=== PATIENT | male | born 1995 | race Hispanic/Latino ===

== ENCOUNTER 2019-09-19 21:06 | Emergency (ER) | payer SELFPAY ==
--- NOTE | 2019-09-19 21:24 | Event Note ---
ED Screening Note Date of service: 09/19/19 Time: 21:23 ED Screening Note: 4-year-old -Dominican male brought in by friend for concern of a seizure. It was reported that patient was smoking weed and drinking alcohol when he fell off the bed and was having full body shaking and had wet on himself. This initial assessment/diagnostic orders/clinical plan/treatment(s) is/are subject to change based on patients health status, clinical progression and re- assessment by fellow clinical providers in the ED. Further treatment and workup at subsequent clinical providers discretion. Patient/guardian urged not to elope from the ED as their condition may be serious if not clinically assessed and managed. Initial orders include: Seizure work-up with CT
[2019-09-19 21:37] LABS: Bilirubin,Urine NEG (Negative); Blood,Urine NEG (Negative); Color,Urine Colorless (Yellow); Protein,Urine <15 mg/dL mg/dL (Negative); Urobilinogen,Urine < 2.0 mg/dL (<2.0)
[2019-09-19 21:46] LABS: Amphetamine Screen,Urine PRESUMPTIVE NEGATIVE; Benzodiazepines Screen,Urine PRESUMPTIVE NEGATIVE; Cannabinoid Screen,Urine PRESUMPTIVE NEGATIVE; Cocaine Screen,Urine PRESUMPTIVE NEGATIVE; Methadone Screen,Urine PRESUMPTIVE NEGATIVE; Opiate Screen,Urine PRESUMPTIVE NEGATIVE
[2019-09-19 21:52] LABS: Basophils # (Auto) 0.1 K/mm3 (0.0-0.1); Basophils % (Auto) 0.7 % (0.0-1.8); Eosinophils # (Auto) 0.1 K/mm3 (0.0-0.4); Eosinophils % (Auto) 1.5 % (0.0-4.3); Hematocrit 42.5 % (35.5-45.6); Hemoglobin 14.8 gm/dl (11.8-15.2); Lymphocytes # (Auto) 2.4 K/mm3 (1.2-5.4); Lymphocytes % (Auto) 27.2 % (13.4-35.0); Mean Corpuscular HGB Conc 35 % (32-34); Mean Corpuscular Volume 90 fl (84-94); Monocytes # (Auto) 0.7 K/mm3 (0.0-0.8); Monocytes % (Auto) 7.6 % (0.0-7.3); Platelet Count 160 K/mm3 (140-440); Red Blood Count 4.71 M/mm3 (3.65-5.03); Red Cell Distribution Width 14.8 % (13.2-15.2)
--- NOTE | 2019-09-19 22:05 | Cat Scan Report ---
CT head/brain wo con INDICATION / CLINICAL INFORMATION: 24 years Male; Patient states he had a possible seizure. TECHNIQUE: Routine CT head without contrast. All CT scans at this location are performed using CT dos e reduction for ALARA by means of automated exposure control. COMPARISON: None. FINDINGS: BRAIN / INTRACRANIAL CONTENTS: No acute hemorrhage, mass effect, midline shift, hydrocephalus, or acu te, large territorial infarct. No chronic infarct or atrophy appreciated. No significant white matter abnormality. CRANIOCERVICAL JUNCTION: No significant abnormality. ORBITS: No significant abnormality of visualized orbits. SINUSES / MASTOIDS: No significant abnormality the visualized paranasal sinuses or mastoid air cells. ADDITIONAL FINDINGS: None. IMPRESSION: 1. No focal mass, hemorrhage, hydrocephalus, or acute, large territorial infarct. Signer Name: Luigi Nunez MD, III Signed: 09/19/2019 10:01 PM Workstation Name: [id number]
[2019-09-19] MEDS ORDERED: levETIRAcetam 1000 MG/NS 0.75% 1,000 MG/100 ML BAG IV ONE (22:20)
[2019-09-19] MEDS ORDERED: SODIUM CHLORIDE 0.9% 1000 ML 1,000 ML IV ONE (22:20)
[2019-09-19 22:22] LABS: Alanine Aminotransferase 14 units/L (7-56); BUN/Creatinine Ratio 18; Blood Urea Nitrogen 11 mg/dL (9-20); Calcium 10.2 mg/dL (8.4-10.2); Hemolysis Index 10
--- NOTE | 2019-09-19 23:01 | Emergency Department Report ---
HPI <DARLINE MAN - Last Filed: 09/20/19 12:21> - HPI HPI: 24-year-old male presents to the emergency department via EMS from home after he had some witnessed seizure-like activity about 30 minutes prior to arrival. The patient does not have any seizure or epilepsy history. At the time of my examination he is awake, alert, oriented with only the complaint of some generalized dizziness. Patient does admit to drinking 2 beers this evening but he does not appear intoxicated and denies any daily drinking or alcohol dependence. He admits to some occasional marijuana use but otherwise no other illicit drug use. Secondly, the patient complains of depression and suicidal ideations. The depression has been going on for weeks and the suicidal ideations for the past few days. He says he would have the plan to overdose "like I did in the past." <SHORTY ZIEGLER - Last Filed: 09/20/19 16:08> - General Chief Complaint: Seizure Time Seen by Provider: 09/19/19 22:20 ED Past Medical Hx <DARLINE MAN - Last Filed: 09/20/19 12:21> - Past Medical History Previous Medical History?: No - Surgical History Past Surgical History?: No - Social History Smoking Status: Current Every Day Smoker Substance Use Type: Alcohol, Marijuana <SHORTY ZIEGLER - Last Filed: 09/20/19 16:08> - Medications Home Medications: Home Medications Medication Instructions Recorded Confirmed Last Taken Type Luke 09/20/19 Unknown History SEROquel 09/20/19 Unknown History ED Review of Systems ROS: Stated complaint: SEIZURES Other details as noted in HPI <DARLINE MAN - Last Filed: 09/20/19 12:21> ROS: Stated complaint: SEIZURES Other details as noted in HPI Comment: All other systems reviewed and negative Constitutional: denies: chills, fever Eyes: denies: eye pain, vision change ENT: denies: ear pain, throat pain Respiratory: denies: cough, shortness of breath Cardiovascular: denies: chest pain, palpitations Gastrointestinal: denies: abdominal pain, vomiting Genitourinary: denies: dysuria, discharge Musculoskeletal: denies: back pain, arthralgia Skin: denies: rash, lesions Neurological: other (Dizziness). denies: headache Psychiatric: depression, suicidal thoughts. denies: auditory hallucinations, visual hallucinations, homicidal thoughts <SHORTY ZIEGLER - Last Filed: 09/20/19 16:08> Physical Exam - Physical Exam Vital Signs: Vital Signs 09/19/19 09/19/19 09/20/19 21:10 21:15 02:15 Temperature 98.4 F 98.4 F 98.2 F Pulse Rate 114 H 109 H 91 H Respiratory 18 18 18 Rate Blood Pressure 142/81 142/81 Blood Pressure 100/54 [Right] O2 Sat by Pulse 98 97 98 Oximetry <DARLINE MAN - Last Filed: 09/20/19 12:21> - Physical Exam Vital Signs: Vital Signs 09/19/19 09/19/19 21:10 21:15 Temperature 98.4 F 98.4 F Pulse Rate 114 H 109 H Respiratory 18 18 Rate Blood Pressure 142/81 142/81 O2 Sat by Pulse 98 97 Oximetry Physical Exam: GENERAL: The patient is well-developed well-nourished. HENT: Normocephalic. Atraumatic. Patient has moist mucous membranes. EYES: Extraocular motions are intact. No nystagmus. NECK: Supple. Trachea is midline. CHEST/LUNGS: Clear to auscultation. There is no respiratory distress noted. HEART/CARDIOVASCULAR: Regular. There is no tachycardia. ABDOMEN: Abdomen is soft, nontender. Patient has normal bowel sounds. SKIN: Skin is warm and dry. NEURO: The patient is awake, alert, and oriented. The patient is cooperative. The patient has no focal neurologic deficits. Normal speech. Cranial nerves II through XII grossly intact. No pronator drift. No dysmetria. MUSCULOSKELETAL: There is no tenderness or deformity. There is no evidence of acute injury. <SHORTY ZIEGLER S - Last Filed: 09/20/19 16:08> ED Course Vital Signs 09/19/19 09/19/19 09/20/19 21:10 21:15 02:15 Temperature 98.4 F 98.4 F 98.2 F Pulse Rate 114 H 109 H 91 H Respiratory 18 18 18 Rate Blood Pressure 142/81 142/81 Blood Pressure 100/54 [Right] O2 Sat by Pulse 98 97 98 Oximetry <DARLINE MAN - Last Filed: 09/20/19 12:21> Vital Signs 09/19/19 09/19/19 21:10 21:15 Temperature 98.4 F 98.4 F Pulse Rate 114 H 109 H Respiratory 18 18 Rate Blood Pressure 142/81 142/81 O2 Sat by Pulse 98 97 Oximetry <SHORTY ZIEGLER - Last Filed: 09/20/19 16:08> ED Medical Decision Making - Lab Data Result diagrams: 09/19/19 21:35 09/19/19 21:35 <DARLINE MAN - Last Filed: 09/20/19 12:21> - Lab Data Result diagrams: 09/19/19 21:35 09/19/19 21:35 - EKG Data -: EKG Interpreted by [facility] EKG shows normal: sinus rhythm, axis, intervals, QRS complexes, ST-T waves Rate: normal - EKG Data When compared to previous EKG there are: previous EKG unavailable Interpretation: normal EKG - Radiology Data Radiology results: report reviewed CT head/brain wo con INDICATION / CLINICAL INFORMATION: 24 years Male; Patient states he had a possible seizure. TECHNIQUE: Routine CT head without contrast. All CT scans at this location are performed using CT dose reduction for ALARA by means of automated exposure control. COMPARISON: None. FINDINGS: BRAIN / INTRACRANIAL CONTENTS: No acute hemorrhage, mass effect, midline shift, hydrocephalus, or acute, large territorial infarct. No chronic infarct or atrophy appreciated. No significant white matter abnormality. CRANIOCERVICAL J UNCTION: No significant abnormality. ORBITS: No significant abnormality of visualized orbits. SINUSES / MASTOIDS: No significant abnormality the visualized paranasal sinuses or mastoid air cells. ADDITIONAL FINDINGS: None. IMPRESSION: 1. No focal mass, hemorrhage, hydrocephalus, or acute, large territorial infarct. - Medical Decision Making This patient presents to the emergency department with the complaint of having some seizure-like activity prior to presentation without any history of epilepsy or recurrent seizures. Since being in the emergency department the patient has been awake, alert, oriented. He has no focal, motor or sensory deficits and his cranial nerves are intact. A CT scan of the head was done that does not show any bleed, shift, mass, ischemia, or any other acute process. Labs have been unremarkable including CBC, metabolic panel, urine drug screen. His blood alcohol level was 0.03 consistent with his drinking 1-2 beers this evening. Patient was given a loading dose of Keppra and some IV fluid resuscitation. At the time of my examination, the patient also complains of some depression and suicidal ideations. He appears to have a history of depression as he says he has overdosed in the past intentionally. Once again the patient says that he is suicidal with the thoughts of harming himself by overdose. For this reason the patient has been made a 1013. Vital signs stable throughout his ED course. At this point the patient has been in the emergency department for 3.5 hours and there has been no further seizure-like activity. The patient is medically cleared for psychiatric placement. He will be given a referral for neurology, Dr. Diana, for when he is done with his psychiatric work-up/treatment. <SHORTY ZIEGLER - Last Filed: 09/20/19 16:08> Critical care attestation.: If time is entered above; I have spent that time in minutes in the direct care of this critically ill patient, excluding procedure time. <DARLINE MAN - Last Filed: 09/20/19 12:21> Critical Care Time: No Critical care attestation.: If time is entered above; I have spent that time in minutes in the direct care of this critically ill patient, excluding procedure time. <SHORTY ZIEGLER S - Last Filed: 09/20/19 16:08> ED Disposition Is pt being admited?: No Does the pt Need Aspirin: No <DARLINE MAN - Last Filed: 09/20/19 12:21> Is pt being admited?: No Time of Disposition: 00:48 <SHORTY ZIEGLER - Last Filed: 09/20/19 16:08> Clinical Impression: New onset seizure, Depression, Suicidal ideations Disposition: DC-01 TO HOME OR SELFCARE Condition: Stable Instructions: New-Onset Seizure in Adults (ED) Referrals: JB SOLITARIO MD [Primary Care Provider] - 3-5 Days NANY DIANA MD [Referring] - 3-5 Days
[2019-09-20 03:54] VITALS: BP 100/54
== END 2019-09-20 12:39 | disposition home or self-care (01) ==
LOC: ED 21:06
DX: R56.9 Unspecified convulsions (principal); F32.9 Major depressive disorder, single episode, unspecified; R45.851 Suicidal ideations; R42 Dizziness and giddiness; F17.200 Nicotine dependence, unspecified, uncomplicated; F12.10 Cannabis abuse, uncomplicated; Z91.013 Allergy to seafood
CPT/HCPCS: 36415; 70450; 80053; 80307; 81001; 82140; 82962; 85025; 93005; 93010; 96365; 99285; J1953; J7030; 80320; G0480